=== PATIENT | female | born 1980 | race Caucasian/White ===

== ENCOUNTER 2018-03-27 10:15 | Emergency (ER) | payer MEDICAID ==
[2018-03-27 10:26] VITALS: BP 113/68
--- NOTE | 2018-03-27 12:18 | ED Physician Documentation ---
History of Present Illness - Stated complaint Stated Complaint: SORES IN MOUTH/SWOLLEN - Chief complaint Chief Complaint: General - History obtained from History obtained from: Patient - History of Present Illness Timing: How many days ago (3) Pain level max: 8 Pain level now: 8 - Additonal information Additional information: Patient is a 37-year-old female who presents to the emergency department with sores in her mouth. She states this is similar to her past herpes stomatitis outbreaks. No fevers. No vomiting. She is not , breast-feeding or trying to become . No vomiting. No nausea. Better with nothing. Worse with eating or drinking Review of Systems Constitutional: denies: Fever, Chills Ears: denies: Ear pain Nose: denies: Rhinorrhea / runny nose, Congestion Throat: denies: Sore throat Cardiac: denies: Chest pain / pressure Respiratory: denies: Cough GI: denies: Abdominal Pain, Nausea, Vomiting, Diarrhea Skin: denies: Rash Musculoskeletal: denies: Neck pain, Back pain Neurologic: denies: Headache PD PAST MEDICAL HISTORY - Past Medical History Past Medical History: Yes Psych: Depression, Bipolar disorder - Past Surgical History Past Surgical History: Yes /[employer]: section, Hysterectomy HEENT: Tonsil/Adenoidectomy - Present Medications Home Medications: Ambulatory Orders Medication Instructions Recorded Confirmed Hydrocodone/Acetaminophen 1 - 2 tab PO Q6H PRN #14 tablet 03/27/18 [Hydrocodon-Acetaminophen 5-325] Valacyclovir HCl [Valacyclovir] 2,000 mg PO BID #4 tablet 03/27/18 - Allergies Allergies/Adverse Reactions: Allergies Allergy/AdvReac Type Severity Reaction Status Date / Time No Known Drug Allergies Allergy Verified 03/27/18 10:26 - Social History Does the pt smoke?: No Smoking Status: Former smoker Does the pt drink ETOH?: No Does the pt have substance abuse?: No - Immunizations Immunizations are current?: No - POLST Patient has POLST: No PD ED PE NORMAL - Vitals Vital signs reviewed: Yes - General General: Alert and oriented X 3, No acute distress - HEENT HEENT: Moist mucous membranes - Neck Neck: Supple, no meningeal sign - Cardiac Cardiac: RRR - Respiratory Respiratory: No respiratory distress, Clear bilaterally - Derm Derm: Warm and dry - Neuro Neuro: Alert and oriented X 3 - Free text exam Free text exam: Diffuse aphthous ulcers in the oropharynx. No external lesions on the hands or feet. Results - Vitals Vitals: Vital Signs - 24 hr 03/27/18 10:24 Temperature 36.8 C Heart Rate 84 Respiratory 18 Rate Blood Pressure 113/68 O2 Saturation 98 Oxygen O2 Source Room air PD MEDICAL DECISION MAKING - ED course Complexity details: considered differential, d/w patient ED course: Patient is a 37-year-old female with what appears to be herpes stomatitis. Will place on valacyclovir and follow-up with her doctor. Also prescribe pain medication for her. She is well-appearing, nontoxic. Afebrile. Tolerating p.o. well. Patient counseled regarding signs and symptoms for which I believe and urgent re-evaluation would be necessary. Patient with good understanding of and agreement to plan and is comfortable going home at this time This document was made in part using voice recognition software. While efforts are made to proofread this document, sound alike and grammatical errors may oc cur. Departure - Departure Disposition: 01 Home, Self Care Clinical Impression: Herpes stomatitis Condition: Good Instructions: ED Canker Sore Follow-Up: your,doctor if not better in 1 week [Other] Prescriptions: Hydrocodone/Acetaminophen [Hydrocodon-Acetaminophen 5-325] 1 - 2 tab PO Q6H PRN #14 tablet PRN Reason: pain Valacyclovir HCl [Valacyclovir] 2,000 mg PO BID #4 tablet Comments: Take the medications as prescribed. This will help to shorten the duration of the outbreak. Follow-up with your doctor for further care. Return if you worsen Do not drink alcohol or drive while on narcotic pain medicine. Note that many narcotic pain relievers also contain tylenol/acetaminophen. Please ensure that your total dose of acetaminophen from all sources does not exceed 3 grams (3000mg) per day. You may constipated on this medication, take a stool softener such as "Colace" twice a day while you are on it. Also recommend a etys-ujv-bjtwlka laxative such as senna or MiraLAX any day that you do not have a bowel movement. If you received narcotic pain medication in the emergency department, do not drive or operate machinery for the next 24 hours.
== END 2018-03-27 12:29 | disposition home or self-care (01) ==
LOC: ED 10:15
DX: B00.2 Herpesviral gingivostomatitis and pharyngotonsillitis (principal); Z87.891 Personal history of nicotine dependence
CPT/HCPCS: 99283